=== PATIENT | female | born 1960 | race Caucasian/White ===

== ENCOUNTER 2022-04-17 07:18 | Outpatient (CLI) | payer BC, SELFPAY | END 2022-04-17 07:19 | disposition home or self-care (01) | LOC: OP CLINIC 07:20 | PROVIDERS: PCP Physician Assistant; Visit Provider Surgery | DX: Z12.11 Encounter for screening for malignant neoplasm of colon (principal); K63.5 Polyp of colon; Z80.0 Family history of malignant neoplasm of digestive organs | CPT/HCPCS: 45380; 88305; 99153; J2250; J3010 ==